=== PATIENT | male | born 1960 | race Caucasian/White ===

== ENCOUNTER 2016-10-10 08:03 | Outpatient (RCR) | payer BC ==
--- OUTSIDE RECORDS SUMMARY | 2016-10-08 11:31 | XMS REPORT | Continuity of Care Document ---
Author Author [facility] Organization [facility] Address Unknown Phone Unavailable Care Team Providers Care Planing Machine Operator Name Role Phone CESARIO BOATENG MD PP Insurance Providers Payer Name Policy Number Subscriber Name Relationship [facility] [id number] Kaz Seaman 01 Self / Same As Patient Advance Directives Directive Response Recorded Date Advance Directives N 07/26/13 5:30am Organ Donor Y 07/26/13 5:30am Problems No Known Problems or Medical conditions. Family History History Response Recorded Date/Time Hx Family Cancer N 07/26/13 5:26am Hx Family Cardiac Disorders Y 07/26/13 5: 26am Hx Family Hypertension Y mother and father 07/26/13 5:26am Hx Family Myocardial Infarction Y mother's family 07/26/13 5:26am Social History History Response Recorded Date/Time Alcohol Use Denies Use 07/26/13 5:24am Recreational Drug Use N 07/26/13 5:24am Recent Infectious Disease Exposure N 06/30 10:22am Sexually Transmitted Disease N 07/26/13 5 :24am HIV/AIDS N 07/26/13 10:22am Allergies, Adverse Reactions, Alerts Allergen Type Severity Reaction Last Updated metformin HCl Adverse Reaction Intermediate RASH 07/26/13 Medications Medication Dose Units Route Sig Qty Days Fish Oil 3000 Mg PO DAILY Multivitamin (Multi Vitamin Daily) 1 Each PO DAILY Glucosamine/D3/Boswellia Irene (Osteo Bi-Flex Caplet) 1 Each PO DAILY Potassium Gluconate 95 Mg PO DAILY Simvastatin 20 Mg PO HS Aspirin (Low Dose Aspirin) 81 Mg PO DAILY Ropinirole Hcl 3 Mg PO HS Alogliptin Benzoate (Nesina) 25 Mg PO DAILY Etodolac (Etodolac 400 Mg) 400 Mg PO DAILY Amlodipine Besylate 10 Mg PO DAILY Prasugrel Hydrochloride (Effient) 10 Mg PO DAILY Losartan Potassium (Cozaar) 100 Mg PO DAILY Immunizations Name Given Type pneumococcal polysaccharide PPV23 07/27/13 A pneumococcal polysaccharide PPV23 07/27/13 A Response Recorded Date/Time Status not known Unknown Results No Known Relevant Diagnostic Tests, Laboratory Data and/or Discharge Summary. Encounters Encounter Location Date/Time Discharged Inpatient [facility] 4:46am
[2016-10-08 11:45] VITALS: BP 141/79
[2016-10-09] MEDS: cefTRIAXone 1 GM/NS 50 ML IVPB IV SCH ×2 (09:10)
[2016-10-09 09:45] VITALS: BP 119/70
--- NOTE | 2016-10-09 09:47 | Physician Query-Final Dx ---
Clinic Account Progress/Dx Physician Query: Please give a diagnosis for the Rocephin treatment thank you Date of Service Oct 09, 2016 at 08:57 JANENE GRANDA Oct 09, 2016 09:47
[~2016-10-10] VITALS: Ht 188 cm; Wt 113.8 kg
[~2016-10-10 08:03] MED LIST: ALOG25TA PO; AMLO10TA82 PO; ASPI-892 PO; BISO10TA PO; ETOD400T PO; GLUC-132 PO; INSU100I14 SQ; INSU100I32 SQ; LOSA100T16 PO; METH1TAB59 PO; METO25TA PO; MULT-974 PO; NORMAL SALINE (BAXTER MINI) 50 ML IV ONE; OMG1KC PO; POTA2.5T PO; PRAS10TA6 PO; ROPI3TAB2 PO; SIMV20TA3 PO; cefTRIAXone 1 GM (ROCEPHIN) VIAL ONE
[2016-10-10] MEDS ORDERED: cefTRIAXone 1 GM (ROCEPHIN) VIAL ONE (08:06)
[2016-10-10] MEDS ORDERED: NORMAL SALINE (BAXTER MINI) 50 ML IV ONE (08:07)
[2016-10-10] MEDS: cefTRIAXone 1 GM/NS 50 ML IVPB IV SCH ×2 (08:26)
[2016-10-10 08:53] VITALS: BP 128/78
== END 2017-01-06 | disposition home or self-care (01) ==
LOC: SDC 08:03
PROVIDERS: ATTEND Family Medicine
DX: L02.01 Cutaneous abscess of face (principal)
CPT/HCPCS: 96365

== ENCOUNTER → 2017-10-02 | Outpatient (CLI) | payer BC ==
[~2017-10-02] MED LIST changes: -NORMAL SALINE (BAXTER MINI) 50 ML IV ONE; +RT-ALBUTEROL SULF 2.5 MG/3 ML PRE-MIX VIAL IH ONE; -cefTRIAXone 1 GM (ROCEPHIN) VIAL ONE
== END ==
LOC: RT 14:52
PROVIDERS: ATTEND Internal Medicine Critical Care Medicine
DX: I10 Essential (primary) hypertension (principal); R07.9 Chest pain, unspecified; R53.83 Other fatigue; G47.9 Sleep disorder, unspecified
CPT/HCPCS: 94060; 94726; 94729

== ENCOUNTER 2017-10-03 15:30 | Outpatient (CLI) | payer BC ==
[~2017-10-03 15:30] MED LIST changes: -RT-ALBUTEROL SULF 2.5 MG/3 ML PRE-MIX VIAL IH ONE
== END 2017-10-03 16:00 | disposition home or self-care (01) ==
LOC: SLEEP 15:30
PROVIDERS: ATTEND Internal Medicine Critical Care Medicine
DX: G47.9 Sleep disorder, unspecified (principal); I10 Essential (primary) hypertension; R53.83 Other fatigue; R07.9 Chest pain, unspecified

== ENCOUNTER → 2018-11-06 | Outpatient (CLI) | payer BC ==
--- NOTE | 2018-11-06 10:38 | Diagnostic Imaging Report ---
INDICATION: Left lung crackles. COMPARISON: 03/04/2014. FINDINGS: Curvilinear discoid subsegmental atelectasis what is believed to be right lower lobe is best seen in the lateral radiograph. There does appear to be some patchy partial atelectasis in the left base as well there is calcified benign granuloma left upper lobe stable. No failure, effusion or pneumothorax. IMPRESSION: Bibasilar partial atelectasis, chronic granulomatous disease. No focal pneumonia, failure pattern or pleural fluid. Dictated by: Dictated on workstation # [id number]
== END ==
LOC: RAD 10:01
PROVIDERS: ATTEND Internal Medicine
DX: J06.9 Acute upper respiratory infection, unspecified (principal); J84.10 Pulmonary fibrosis, unspecified; J98.11 Atelectasis
CPT/HCPCS: 71046

== ENCOUNTER → 2019-09-30 | Outpatient (CLI) | payer BC ==
--- NOTE | 2019-09-30 13:55 | Diagnostic Imaging Report ---
INDICATION: Thyroid nodules. FINDINGS: Right lobe of the thyroid measures 6.4 x 3.1 x 3.0 cm, and the left lobe measures 6.6 x 2.9 x 2.3 cm. Isthmus is 6 mm in thickness. There are multiple bilateral thyroid nodules. Largest nodule on the right is in the upper pole measuring 2.3 x 1.8 x 2.0 cm. This does show some vascularity. There is a smaller nodule in the lower pole, approximately 1.8 x 1.4 cm. Left lobe contains several solid nodules, largest in the lower pole measuring 2.3 x 1.8 x 2.2 cm. Overall, the nodules do appear to be decreased in size when compared with prior ultrasound dating back to 2013. IMPRESSION: Decrease in size of bilateral thyroid nodules when compared with examination from 03/10/2014. Dictated by: Dictated on workstation # [id number]
== END ==
LOC: RAD 12:26
PROVIDERS: ATTEND Family Medicine
DX: E04.2 Nontoxic multinodular goiter (principal)
CPT/HCPCS: 76536

== ENCOUNTER → 2020-04-25 | Outpatient (CLI) | payer BC | LOC: CARD 09:32 | PROVIDERS: ATTEND Internal Medicine Interventional Cardiology | DX: I25.10 Atherosclerotic heart disease of native coronary artery without angina pectoris (principal); E78.5 Hyperlipidemia, unspecified; I10 Essential (primary) hypertension; E11.9 Type 2 diabetes mellitus without complications; I77.9 Disorder of arteries and arterioles, unspecified; Z72.0 Tobacco use | CPT/HCPCS: 93306 ==

== ENCOUNTER 2020-07-28 08:30 | Outpatient (RCR) | payer BC ==
[~2020-07-28] VITALS: Ht 188 cm; Wt 129.0 kg
[~2020-07-28 08:30] MED LIST changes: +CATHETER FLUSH 10 ML SYR IV PRN; +REGADENOSON 0.4 MG/5 ML SYR (LEXISCAN) IV ONE
[2020-07-28] MEDS ORDERED: REGADENOSON 0.4 MG/5 ML SYR (LEXISCAN) IV ONE (08:39)
[2020-08-01 09:19] VITALS: BP_SYST 157
--- NOTE | 2020-08-01 09:19 | Cardiology Stress Test Report ---
Stress Test Report Type of NM Stress Test: Test Type: LEXISCAN 0.4MG/5ML Date of Procedure/Referring: Date of Procedure: Jul 28, 2020 PCP [place] Connors MD Admitting Physician Marley Ruiz MD Indications: Chest discomfort Baseline Heart Rate: 75 Baseline Blood Pressure: Blood Pressure Systolic: 157 Baseline EKG: Baseline EKG: sinus rhythm Summary & Conclusion: Summary: The patient was brought to the stress lab after informed consent was taken. Stress test was performed according to the Lexiscan protocol. 0.4 mg of IV Lexiscan was given. Low-grade exercise was performed. Baseline EKG showed sinus rhythm at 75 BPM. Systolic blood pressure 157 mmHg. Maximum heart rate of 84 bpm and blood pressure 162/83 mmHg. Patient did not have any chest pain, arrhythmias or ST segment changes during the stress test. 10.5 mCi of Myoview were given for rest imaging and 31.7 mCi of Myoview given for stress imaging. Transient ischemic dilatation score 0.91, EF 56 percent. Normal wall motion. Normal myocardial perfusion imaging during rest and stress. Conclusion: Pharmacological stress test was negative for ischemia. Normal LV function with no wall motion abnormalities. Normal myocardial perfusion imaging during rest and stress. Brelin CONNORS MD Aug 01, 2020 09:19
[2020-08-06] MEDS ORDERED: NITRO DRIP 25000 MCG/D5W 0 ML IV ONE (16:57)
[2020-08-06] MEDS ORDERED: fentaNYL INJECTION 100 MCG/2 ML AMP ONE (16:57)
[2020-08-06] MEDS ORDERED: HEParin 1000 UNIT/ML (10ML VIAL) FOR BOLUS ONE (16:57)
[2020-08-06] MEDS ORDERED: NS IV 1000 ML 0 ML ONE (16:57)
[2020-08-06] MEDS ORDERED: MIDAZOLAM 5 MG/5 ML (VERSED) VIAL ONE (16:57)
[2020-08-06] MEDS ORDERED: HEParin (CATH LAB) 0 ML IV ONE (16:57)
[2020-08-06] MEDS ORDERED: LIDOCAINE 1% INJ 20 ML 20 ML VIAL ONE (16:57)
== END 2020-10-26 | disposition home or self-care (01) ==
LOC: CARD 08:30
PROVIDERS: ATTEND Internal Medicine Interventional Cardiology
DX: I25.10 Atherosclerotic heart disease of native coronary artery without angina pectoris (principal); I10 Essential (primary) hypertension; E11.9 Type 2 diabetes mellitus without complications; E78.5 Hyperlipidemia, unspecified; Z72.0 Tobacco use
CPT/HCPCS: 78452; 93017; A9502

== ENCOUNTER 2021-02-02 12:59 | Outpatient (CLI) | payer BC ==
[~2021-02-02] VITALS: Ht 188 cm; Wt 129.5 kg
[~2021-02-02 12:59] MED LIST changes: -CATHETER FLUSH 10 ML SYR IV PRN; -REGADENOSON 0.4 MG/5 ML SYR (LEXISCAN) IV ONE
[2021-02-03] MEDS ORDERED: ASPI-999 PO (13:10)
[2021-02-03] MEDS ORDERED: LOSA100T57 PO (13:10)
[2021-02-03] MEDS ORDERED: AMLO-251 PO (13:10)
[2021-02-03] MEDS ORDERED: OMEP40CA27 PO (13:10)
[2021-02-03] MEDS ORDERED: DAPA10TA PO (13:10)
[2021-02-03] MEDS ORDERED: DULA0.75 SQ (13:10)
[2021-02-03] MEDS ORDERED: MONT10TA32 PO (13:10)
[2021-02-03] MEDS ORDERED: OMG1KC PO (13:10)
[2021-02-03] MEDS ORDERED: POTA99TA21 PO (13:10)
[2021-02-03] MEDS ORDERED: ATOR40TA70 PO (13:10)
[2021-02-03] MEDS ORDERED: CHOL200059 PO (13:10)
[2021-02-03] MEDS ORDERED: MULT-1136 PO (13:10)
[2021-02-03] MEDS ORDERED: GLUC-219 PO (13:10)
== END 2021-02-03 13:13 | disposition home or self-care (01) ==
LOC: PREOP 12:59
PROVIDERS: ATTEND Internal Medicine
DX: Z01.818 Encounter for other preprocedural examination (principal)

== ENCOUNTER 2021-02-10 08:55 | Day surgery (SDC) | payer BC ==
--- NOTE | 2021-02-02 17:00 | HISTORY AND PHYSICAL ---
DATE OF SERVICE: COLONOSCOPY HISTORY AND PHYSICAL HISTORY: The patient is a 60-year-old white male referred by Dr. Ruiz for screening colonoscopy. He is deemed to be of average risk. He is not aware of any family history for colon cancer. He denies bowel habit change, bright red blood per rectum, melena or abdominal pain. PAST MEDICAL HISTORY: Significant for type 2 diabetes. He has a history of hyperlipidemia and hypertension. He does have a history of coronary artery disease, underwent LAD stent placement at the age of 52. He has had no subsequent problems. MEDICATIONS ON ADMISSION: Include losartan 100 mg daily, amlodipine 10 mg daily, bisoprolol 10 mg daily, atorvastatin 40 mg, typically takes about 80 units of Tresiba daily with Trulicity 0.75 mg weekly, Forxiga 10 mg daily, omeprazole 40 mg daily, Singulair 10 mg daily, fluticasone 50 mcg spray 2 puffs both nasal passages daily, aspirin 81 mg daily, and 2000 mg of fish oil daily with multiple vitamin and vitamin D3 unknown dose daily. SOCIAL HISTORY: He is , employed, 20 plus pack year smoking history, but quit 10 years ago. Occasional social alcohol consumption, moderated volume. FAMILY HISTORY: Brother has a history of hypertension, type 2 diabetes and had an TX in his 50s. Father has hypertension, heart disease in his 60s. Mother had type 2 diabetes, also had an TX and hypertension and has a sister with hypertension. No family history for GI tract malignancy. REVIEW OF SYSTEMS: CONSTITUTIONAL: The patient denies night sweats, chills, fever, change in weight. CARDIOVASCULAR: The patient denies chest pain, dyspnea on exertion, edema, syncope, presyncope. RESPIRATORY: The patient denies cough, wheezing, dyspnea at rest or on exertion. GASTROINTESTINAL: As noted in the HPI. PHYSICAL EXAMINATION: GENERAL: Reveals a pleasant overweight white male, in no acute distress. VITAL SIGNS: Weight 285 pounds, blood pressure 132/76. HEENT: Unremarkable. CHEST: Clear to auscultation. CARDIOVASCULAR: Revealed a regular rate and rhythm without murmur, S3 or S4. ABDOMEN: Soft, supple without mass, organomegaly or tenderness. EXTREMITIES: Reveal no cyanosis, clubbing or edema. ASSESSMENT AND PLAN: The patient was set up for his first screening colonoscopy on 02/10/2021. Prep instructions and Suprep kit were given and questions were answered. It was advised to cut down his Tresiba to 60 units on the morning prior to his endoscopy and hold it the morning of his endoscopy. The patient is very anxious about the procedure, does not want to have any recollection of it, so will be doing this via Diprivan anesthesia assisted sedation. I thank you for the referral of this pleasant gentleman. Job ID: [id number] DocumentID: [id number] Dictated Date: 02/02/2021 16:32:37 Strap Making Machine Operator Date: 02/02/2021 16:59:58 Dictated By: ERIC LAUGHLIN MD
[~2021-02-10] VITALS: Ht 188 cm; Wt 129.5 kg
[~2021-02-10 08:55] MED LIST changes: +AMLO-251 PO; +ASPI-999 PO; +ATOR40TA70 PO; +CHOL200059 PO; +DAPA10TA PO; +DULA0.75 SQ; +GLUC-219 PO; +LACTATED RINGERS 1,000 ML IV ONE; +LOSA100T57 PO; +MONT10TA32 PO; +MULT-1136 PO; +OMEP40CA27 PO; +POTA99TA21 PO
[2021-02-10] MEDS ORDERED: LACTATED RINGERS 1,000 ML IV STA (09:03)
[2021-02-10] MEDS ORDERED: LIDOCAINE JELLY 2% 6 ML SYRINGE MM PRN (09:15)
[2021-02-10] MEDS ORDERED: PROPOFOL INJECTION 50 ML IV ONE (09:21)
[2021-02-10] MEDS ORDERED: MIDAZOLAM 2 MG/2 ML (VERSED) VIAL ONE (09:21)
[2021-02-10 09:55] VITALS: BP 144/79
[2021-02-10] MEDS ORDERED: LIDOCAINE JELLY 2% 6 ML SYRINGE ONE (09:58)
[2021-02-10] MEDS ORDERED: proPOfol 200 MG/20 ML (DIPRIVAN) VIAL IV ONE (10:16)
[2021-02-10 10:35] VITALS: BP 103/65
[2021-02-10 10:40] VITALS: BP 119/59
[2021-02-10 10:45] VITALS: BP 120/60
--- NOTE | 2021-02-10 10:47 | Anesthesia-General Post-Op ---
MAC Patient Condition Mental Status/LOC: Same as Preop Cardiovascular: Satisfactory Nausea/Vomiting: Absent Respiratory: Satisfactory Pain: Controlled Complications: Absent Post Op Complications Complications None Follow Up Care/Instructions Patient Instructions None needed. Anesthesiology Discharge Order Discharge Order Patient is doing well, no complaints, stable vital signs, no apparent adverse anesthesia problems. No complications reported per nursing. ALAN OBRIEN CRNA Feb 10, 2021 10:47
--- NOTE | 2021-02-10 10:51 | Pre-Op Note & Conscious Sedat ---
Pre-Operative Progress Note H&P Reviewed The H&P was reviewed, patient examined and no changes noted. Date H&P Reviewed: Feb 10, 2021 Time H&P Reviewed: 10:00 Conscious Sedation Pre-Proced ASA Score 3 For ASA 3 and 4: Consider anesthesia and medical clearance. Also, for patients with a history of failed moderate sedation consider anesthesia. Airway Lungs Heart ASA score ASA 1: a normal healthy patient ASA 2: a patient with a mild systemic disease (mid diabetes, controlled hypertension, obesity ASA 3: a patient with a severe systemic disease that limits activity (angina, COPD, prior Myocardial infarction) ASA 4: a patient with an incapacitating disease that is a constant threat to life (CHF, renal failure) ASA 5: a moribund patient not expected to survive 24 hrs. (ruptured aneurysm) ASA 6: a declared brain- patient whose organs are being harvested. For emergent operations, add the letter E after the classification Mallampati Classification Grade 3 Sedation Plan Analgesia, Amnesia, Plan communicated to team members, Discussed options with patient/fam, Discussed risks with patient/fam The patient is an appropriate candidate to undergo the planned procedure, sedation, and anesthesia. The patient immediately re-assessed prior to indication. ERIC LAUGHLIN MD Feb 10, 2021 10:51
[2021-02-10 11:05] VITALS: BP 113/67
[2021-02-10 11:44] VITALS: BP 113/67
--- NOTE | 2021-02-10 19:40 | OPERATIVE REPORT ---
DATE OF SERVICE: 02/10/2021 COLONOSCOPY SUMMARY INDICATION FOR THE PROCEDURE: Screening colonoscopy. The patient was placed in the left lateral decubitus position. Prior to undergoing colonoscopy, digital rectal evaluation was performed. Anal sphincter tone was normal and the perianal reflexes intact. The prostate was normal in size and anodular to digital inspection. No abnormalities were noted on digital inspection of anal canal or distal rectal vault. The colonoscope was inserted into the rectum and under direct visualization advanced to cecum. The cecum was identified by identification of the ileocecal valve and cecal strap. Photographic documentation was obtained. Quality of prep was suboptimal with areas of semi-solid stool present in various locations throughout the colon. FINDINGS: There was no evidence for internal or external hemorrhoids. Present in the rectum was a diminutive hyperplastic-appearing polyp. It was biopsied and ablated. There was no subsequent blood loss. The visualized portions of the sigmoid colon, descending colon, splenic flexure and transverse colon were unremarkable. A 4 mm sessile hepatic flexure polyp was noted. It was photographed and biopsied and ablated and submitted for histopathology. The ascending colon and cecum of which there was only partial visualization due to stool were unremarkable. ASSESSMENT: Two small polyps were removed today with suboptimal prep. The patient states that he followed instructions, but did not go near as much. There may be some delayed transit due to GLP-1 therapy. We will discuss prep modifications with likely need for repeat screening colonoscopy in one year due to today's suboptimal prep conditions. I thank you for the referral of this pleasant gentleman. Job ID: [id number] DocumentID: [id number] Dictated Date: 02/10/2021 11:49:08 Director Loss Prevention Date: 02/10/2021 19:39:47 Dictated By: ERIC LAUGHLIN MD [facility]
== END 2021-02-10 11:44 | disposition home or self-care (01) ==
LOC: ENDO 08:55
PROVIDERS: ATTEND Internal Medicine
DX: Z12.11 Encounter for screening for malignant neoplasm of colon (principal); K63.5 Polyp of colon; I10 Essential (primary) hypertension; G47.33 Obstructive sleep apnea (adult) (pediatric); E11.9 Type 2 diabetes mellitus without complications; K21.9 Gastro-esophageal reflux disease without esophagitis; E78.5 Hyperlipidemia, unspecified; Z79.899 Other long term (current) drug therapy; Z79.82 Long term (current) use of aspirin; Z88.8 Allergy status to other drugs, medicaments and biological substances; Z95.5 Presence of coronary angioplasty implant and graft
CPT/HCPCS: 88305

== ENCOUNTER → 2022-03-28 | Outpatient (CLI) | payer BC ==
[~2022-03-28] MED LIST changes: -BISO10TA PO; +BISO10TA6 PO; -LACTATED RINGERS 1,000 ML IV ONE; +MONT-40 PO; -MONT10TA32 PO; -OMEP40CA27 PO; +OMEP40CA6 PO; -POTA99TA21 PO; +POTA99TA26 PO
--- NOTE | 2022-03-28 12:39 | Diagnostic Imaging Report ---
PROCEDURE: MR imaging cervical spine without contrast. TECHNIQUE: Multiplanar, multisequence MR imaging of the cervical spine was performed without contrast. INDICATION: Neck pain, left upper extremity pain and tingling down into the hand. COMPARISON: Exam is compared with a cervical MR dated 03/10/2014. FINDINGS: The cervical spinal cord has an unremarkable volume, morphology, and signal intensity. Cervical alignment is stable and unremarkable. No endplate Modic changes. No acute marrow signal pathology. The craniocervical relationship is normal. The C1-C2, the C2-C3, and the C3-C4 levels and discs appeared normal with no stenosis. C4-C5: There is mild disc desiccation and trace circumferential generalized disc bulge as well as small midline focal posterior protruding component. There is degenerative facet arthrosis as well as spurring of the uncovertebral joints. The findings result in mild canal stenosis with moderate left and [id number] right neural foraminal narrowing. Degenerative changes and stenoses have progressed at this level. C5-C6: Disc desiccation, bulge, and endplate osteophytes efface and indent the ventral thecal sac with omrqygng-[id number] canal stenosis, progressed from prior. There is severe left and moderate right neural foraminal narrowing, also increased. C6-C7: Posterior osteophyte disc material effaces and flattens the ventral thecal sac. There is moderate canal stenosis, increased. There is severe left and moderate right neural foraminal narrowing, increased. C7-T1: Mild degenerative changes to the disc result in mild left foraminal narrowing. The canal showed no significant stenosis. This level is stable. Note is made of a substantial reduction in size of the dominant right lobe thyroid mass, today 1.6 cm, previously measuring 3.8 cm. IMPRESSION: 1. Progressive mid to lower cervical degenerative changes result in increased multilevel cervical canal and foraminal stenoses of varying severities, detailed above. 2. Normal-appearing spinal cord. No acute bony pathology. Decreased size of right thyroid lobe mass. Dictated by: Dictated on workstation # [id number]
== END ==
LOC: RAD 08:00
PROVIDERS: ATTEND Nurse Practitioner Family
DX: M47.813 Spondylosis without myelopathy or radiculopathy, cervicothoracic region (principal); M48.03 Spinal stenosis, cervicothoracic region; M50.221 Other cervical disc displacement at C4-C5 level
CPT/HCPCS: 72141

== ENCOUNTER → 2022-10-05 | Outpatient (CLI) | payer BC ==
--- NOTE | 2022-10-05 12:02 | Diagnostic Imaging Report ---
PROCEDURE: US Thyroid. TECHNIQUE: Multiple real-time grayscale images were obtained of the thyroid in various projections. INDICATION: Multiple thyroid nodules. Diabetes mellitus. COMPARISON: 09/30/2019. FINDINGS: Right thyroid lobe: Size (cm): 6.6 x 2.7 x 3.0 Echotexture: Heterogeneous Vascularity: Normal Nodules: There is a hypoechoic solid circumscribed nodule with internal macrocalcification at the superior right thyroid measuring up to 2.4 cm, previously 2.3 cm. There is a hypoechoic solid nodule in the inferior right thyroid with internal calcification, measuring up to 1.7 cm, previously 1.8 cm. Isthmus: Size (cm): 0.3 Nodules: None Left thyroid lobe: Size (cm): 7.0 x 2.8 x 3.0 Echotexture: Mildly heterogeneous Vascularity: Normal Nodules: In the superior left thyroid, there is a hypoechoic, solid, circumscribed nodule measuring 2 cm, previously 1.4 cm. In the mid left thyroid, there is a heterogeneous isoechoic 2.2 cm nodule which is solid and appears taller than wide, previously measuring up to 1.7 cm. In the inferior left thyroid, there is a 2.9 cm heterogeneous hypoechoic nodule with ill-defined borders, previously 2.3 cm. IMPRESSION: 1. Multiple TI-RADS 4 nodules bilaterally. These appear stable in size on the right, and the three dominant nodules on the left have increased in size since 2019. Five nodules do qualify for FNA based on TI-RADS criteria. Otherwise, recommend ultrasound follow-up in one year. Dictated by: Dictated on workstation # [id number]
== END ==
LOC: RAD 07:42
PROVIDERS: ATTEND Internal Medicine Endocrinology, Diabetes & Metabolism
DX: E04.2 Nontoxic multinodular goiter (principal); E83.52 Hypercalcemia; E11.9 Type 2 diabetes mellitus without complications
CPT/HCPCS: 76536

== ENCOUNTER → 2022-11-07 | Outpatient (CLI) | payer BC ==
[~2022-11-07] MED LIST changes: +LIDOCAINE 1% INJ 30 ML (XYLOCAINE) VIAL INJ ONE
--- NOTE | 2022-11-07 13:18 | Diagnostic Imaging Report ---
INDICATION: Left lobe thyroid nodules. Patient presents for ultrasound guided biopsy. DETAILS OF THE PROCEDURE: The patient was brought to the procedure room and placed on the table in the supine position. Ultrasound imaging of the neck was performed to evaluate for an appropriate entry site. The left neck was then prepped and draped in the usual sterile fashion. A small amount of 1% lidocaine was utilized for local anesthesia. A total of four passes was made into the solid nodule in the upper pole of the left lobe of the thyroid utilizing 25-gauge needles and fine needle aspiration technique. A single pass was made with a Rotex needle and a Rotex biopsy was performed. IMPRESSION: Successful ultrasound guided fine needle aspiration and Rotex biopsy of the solid nodule in the upper pole of the left lobe of the thyroid. Pathology results are currently pending. Dictated by: Dictated on workstation # [id number]
--- NOTE | 2022-11-07 13:19 | Diagnostic Imaging Report ---
INDICATION: Left lobe thyroid nodules. Patient presents for ultrasound-guided fine-needle aspiration and biopsy. DETAILS OF THE PROCEDURE: The neck was prepped and draped in the usual sterile fashion. A small amount of 1% lidocaine was utilized for local anesthesia. A total of four passes was made into the isoechoic solid nodule in the midportion of the left lobe of the thyroid utilizing 25-gauge needles and fine-needle aspiration technique. A single pass was made with a Rotex needle and a Rotex biopsy was performed. IMPRESSION: Successful ultrasound guided fine needle aspiration and Rotex biopsy of the solid nodule in the midportion of the left lobe of the thyroid. Pathology results are currently pending. Dictated by: Dictated on workstation # [id number]
--- NOTE | 2022-11-07 13:20 | Diagnostic Imaging Report ---
INDICATION: Left lobe thyroid nodules. Patient presents for ultrasound-guided fine-needle aspiration and biopsy. DETAILS OF THE PROCEDURE: The left neck was prepped and draped in the usual sterile fashion. A small amount of 1% lidocaine was utilized for local anesthesia. A total of four passes was made into the dominant solid nodule in the lower pole of the left lobe of the thyroid utilizing 25-gauge needles and fine-needle aspiration technique. A single pass was made with a Rotex needle and a Rotex biopsy was performed. Hemostasis was obtained. The patient tolerated the procedure well and left the Department in stable condition. IMPRESSION: Successful ultrasound guided fine needle aspiration and Rotex biopsy of the dominant left lower pole thyroid nodule. Pathology results are currently pending. Dictated by: Dictated on workstation # [id number]
== END ==
LOC: RAD 08:31
PROVIDERS: ATTEND Family Medicine
DX: E04.2 Nontoxic multinodular goiter (principal)
CPT/HCPCS: 10005; 10006